=== PATIENT | female | born 1975 | race Caucasian/White ===

== ENCOUNTER 2018-08-20 14:34 | Inpatient (IN) | payer BC ==
[~2018-08-20] VITALS: Ht 152.4 cm; Wt 84.4 kg
[2018-08-20] MEDS ORDERED: KETOROLAC 30MG/ML VIAL IV STA (17:02)
[2018-08-20] MEDS ORDERED: SODIUM CHLORIDE 0.9% 1,000 ML IV ONE (17:02)
[2018-08-20] MEDS ORDERED: ONDANSETRON HCL 4MG/2ML INJ IV STA (17:02)
[2018-08-20 17:20] LABS: CLARITY URINE CLOUDY (CLEAR); COLOR URINE DARK YELLOW (YELLOW); KETONES URINE TRACE (NEGATIVE); LEUKOCYTE ESTERASE URINE TRACE (NEGATIVE); NITRITE URINE NEGATIVE (NEGATIVE); OCCULT BLOOD URINE NEGATIVE (NEGATIVE); PH URINE 5.5 (4.5-8.0); PROTEIN URINE NEGATIVE (NEGATIVE); SPECIFIC GRAVITY URINE 1.042 (1.005-1.030)
[2018-08-20] MEDS ORDERED: MORPHINE SULFATE 4 MG/ML CPJ (NOT FOR IM USE) IV ONE (19:45)
[2018-08-20 20:38] LABS: BASOPHILS % 0.6 % (0.0-2.0); EOSINOPHILS % 1.3 % (0.0-5.0); HEMATOCRIT. 35.8 % (36.0-48.0); HEMOGLOBIN. 11.7 g/dL (12.0-16.0); LYMPHOCYTES % 22.4 % (20.0-50.0); MEAN CORPUSCULAR HEMOGLOBIN 28.5 pg (28.0-32.0); MEAN CORPUSCULAR VOLUME 87.3 fL (81.0-99.0); MEAN PLATELET VOLUME 8.3 fl (7.4-10.4); NEUTROPHILS % 67.7 % (40.0-76.0); PLATELET 208 x1000/uL (130-400); RED CELL DISTRIBUTION WIDTH 15.7 % (11.6-14.6)
[2018-08-20 20:42] LABS: CHLORIDE 113 mEq/L (98-107)
[2018-08-20] MEDS ORDERED: MORPHINE SULFATE 10 MG/ML CPJ IV ONE (21:15)
[2018-08-20] MEDS ORDERED: IOHEXOL-300 100 ML BOTTLE ONE (21:41)
[2018-08-20 23:24] VITALS: BP 132/90
[2018-08-21] VITALS: BP 132/90
[2018-08-21] MEDS ORDERED: LEVO50TA8 PO (00:04)
[2018-08-21] MEDS ORDERED: ONDANSETRON HCL 4MG/2ML INJ IV PRN (01:00)
[2018-08-21 01:22] LABS: HCG SCREEN NEGATIVE
[2018-08-21] MEDS: MORPHINE SULFATE 4 MG/ML CPJ (NOT FOR IM USE) IV PRN ×5 (02:15→21:42)
[2018-08-21] MEDS: DEXT 5%/0.45% NACL 1000ML 1,000 ML IV SCH ×2 (02:16→11:39)
[2018-08-21] MEDS: LEVOFLOXACIN 500MG TABLET PO SCH ×2 (02:38→21:05)
[2018-08-21 04:00] VITALS: BP 114/72
[2018-08-21 08:09] LABS: BASOPHILS % 0.7 % (0.0-2.0); EOSINOPHILS % 2.8 % (0.0-5.0); HEMATOCRIT. 33.5 % (36.0-48.0); LYMPHOCYTES % 36.6 % (20.0-50.0); MEAN CORPUSCULAR HEMOGLOBIN 28.5 pg (28.0-32.0); MEAN CORPUSCULAR VOLUME 86.6 fL (81.0-99.0); MEAN PLATELET VOLUME 8.2 fl (7.4-10.4); MONOCYTES % 8.9 % (2.0-8.0); PLATELET 189 x1000/uL (130-400); RED BLOOD CELL COUNT 3.86 mill/uL (4.2-5.4); RED CELL DISTRIBUTION WIDTH 16.1 % (11.6-14.6)
[2018-08-21 08:12] LABS: CHLORIDE 115 mEq/L (98-107)
[2018-08-21 08:40] LABS: T4 FREE 0.91 ng/dL (0.76-1.46)
[2018-08-21] MEDS ORDERED: POTASSIUM CHLORIDE 20MEQ TABLET SR PO SCH (12:00)
[2018-08-21] MEDS: PANTOPRAZOLE SODIUM 40 MG/VIAL IV SCH (15:56)
[2018-08-21 16:44] LABS: INR 1.2; PROTHROMBIN TIME 11.8 sec (9.6-11.0)
[2018-08-21 20:00] VITALS: BP 103/71
[2018-08-22] VITALS: BP 96/64
[2018-08-22] MEDS: DEXT 5%/0.45% NACL 1000ML 1,000 ML IV SCH ×3 (00:17→17:00)
[2018-08-22] MEDS: MORPHINE SULFATE 4 MG/ML CPJ (NOT FOR IM USE) IV PRN ×7 (01:45→22:33)
[2018-08-22 04:00] VITALS: BP 93/65
[2018-08-22] MEDS: PANTOPRAZOLE SODIUM 40 MG/VIAL IV SCH ×2 (04:59→15:53)
[2018-08-22 07:19] LABS: HEMATOCRIT 32.7 % (36.0-48.0); HEMOGLOBIN 10.8 g/dL (12.0-16.0); MEAN CORPUSCULAR HEMOGLOBIN 28.8 pg (28.0-32.0); MEAN CORPUSCULAR VOLUME 87.1 fL (81.0-99.0); PLATELET 185 x1000/uL (130-400); RED BLOOD CELL COUNT 3.75 mill/uL (4.2-5.4); RED CELL DISTRIBUTION WIDTH 15.9 % (11.6-14.6)
[2018-08-22 07:41] LABS: CHLORIDE 111 mEq/L (98-107)
[2018-08-22 08:00] VITALS: BP 91/62
[2018-08-22 12:00] VITALS: BP 93/45
[2018-08-22 16:00] VITALS: BP 98/66
[2018-08-22 20:00] VITALS: BP 107/64
[2018-08-22] MEDS: LEVOFLOXACIN 500MG TABLET PO SCH (20:59)
[2018-08-23] VITALS: BP 93/60
[2018-08-23] MEDS: MORPHINE SULFATE 4 MG/ML CPJ (NOT FOR IM USE) IV PRN ×5 (02:20→20:09)
[2018-08-23] MEDS: PANTOPRAZOLE SODIUM 40 MG/VIAL IV SCH ×2 (03:15→16:09)
[2018-08-23] MEDS: DEXT 5%/0.45% NACL 1000ML 1,000 ML IV SCH ×2 (03:15→13:19)
[2018-08-23 04:00] VITALS: BP 94/62
[2018-08-23 06:39] LABS: BASOPHILS % 0.7 % (0.0-2.0); EOSINOPHILS % 3.3 % (0.0-5.0); HEMATOCRIT. 32.6 % (36.0-48.0); HEMOGLOBIN. 10.9 g/dL (12.0-16.0); LYMPHOCYTES % 41.6 % (20.0-50.0); MEAN CORPUSCULAR VOLUME 86.4 fL (81.0-99.0); MEAN PLATELET VOLUME 7.9 fl (7.4-10.4); MONOCYTES % 7.6 % (2.0-8.0); NEUTROPHILS % 46.8 % (40.0-76.0); PLATELET 192 x1000/uL (130-400); RED BLOOD CELL COUNT 3.78 mill/uL (4.2-5.4)
[2018-08-23 06:46] LABS: INR 1.2; PROTHROMBIN TIME 11.8 sec (9.6-11.0)
[2018-08-23 06:58] LABS: CHLORIDE 110 mEq/L (98-107)
[2018-08-23 08:00] VITALS: BP 85/57
[2018-08-23] MEDS ORDERED: MIDAZOLAM HCL 5 MG/5 ML VIAL ONE ×2 (11:00→11:01)
[2018-08-23] MEDS ORDERED: FENTANYL CITRATE/PF 50MCG/ML 2ML VIAL ONE (11:00)
[2018-08-23 12:42] VITALS: BP 92/60
[2018-08-23 16:00] VITALS: BP 103/69
[2018-08-23 20:00] VITALS: BP 114/74
[2018-08-23] MEDS: LEVOFLOXACIN 500MG TABLET PO SCH (21:42)
[2018-08-24] VITALS: BP 101/60
[2018-08-24] MEDS: MORPHINE SULFATE 4 MG/ML CPJ (NOT FOR IM USE) IV PRN ×4 (00:01→13:54)
[2018-08-24] MEDS: DEXT 5%/0.45% NACL 1000ML 1,000 ML IV SCH ×2 (00:12→09:00)
[2018-08-24 04:00] VITALS: BP 93/57
[2018-08-24] MEDS: PANTOPRAZOLE SODIUM 40 MG/VIAL IV SCH ×2 (04:47→15:01)
[2018-08-24 07:34] LABS: HEMATOCRIT 33.9 % (36.0-48.0); HEMOGLOBIN 11.2 g/dL (12.0-16.0); MEAN CORPUSCULAR HEMOGLOBIN 28.5 pg (28.0-32.0); MEAN CORPUSCULAR VOLUME 86.2 fL (81.0-99.0); PLATELET 198 x1000/uL (130-400); RED BLOOD CELL COUNT 3.94 mill/uL (4.2-5.4); RED CELL DISTRIBUTION WIDTH 15.4 % (11.6-14.6)
[2018-08-24 08:03] VITALS: BP 82/52
[2018-08-24 09:53] LABS: CHLORIDE 110 mEq/L (98-107)
[2018-08-24] MEDS ORDERED: SODIUM CHLORIDE 0.9% 500 ML IV ONE (10:45)
[2018-08-24 11:43] VITALS: BP 96/62
[2018-08-24 14:19] LABS: HEPATITIS B SURFACE ANTIGEN NEGATIVE
[2018-08-24 14:45] LABS: HEPATITIS A AB IGM NEGATIVE (NEGATIVE)
[2018-08-24 15:19] VITALS: BP 104/71
[2018-08-24 16:26] LABS: HEPATITIS B SURFACE ANTIGEN NEGATIVE
[2018-08-24 16:56] LABS: HEPATITIS A AB IGM NEGATIVE (NEGATIVE)
[2018-08-24 16:57] VITALS: BP 104/71
[2018-08-24] MEDS ORDERED: SUCRALFATE 1 G/10 ML UDC PO SCH (17:20)
== END 2018-08-24 17:58 | disposition home or self-care (01) | DRG 381 ==
LOC: ER 14:34 → 6EST 21:04 → EDBEDREQ 21:11 → ENRESERV 22:36
PROVIDERS: ADMIT Internal Medicine; ATTEND Internal Medicine
PROC: 0DB68ZX Excision of Stomach, Via Natural or Artificial Opening Endoscopic, Diagnostic (ICD-10-PCS; principal; 2018-08-23)
DX: K22.10 Ulcer of esophagus without bleeding (principal); E87.0 Hyperosmolality and hypernatremia; K76.6 Portal hypertension; K25.9 Gastric ulcer, unspecified as acute or chronic, without hemorrhage or perforation; K26.9 Duodenal ulcer, unspecified as acute or chronic, without hemorrhage or perforation; K29.70 Gastritis, unspecified, without bleeding; K29.80 Duodenitis without bleeding; K44.9 Diaphragmatic hernia without obstruction or gangrene; K74.60 Unspecified cirrhosis of liver; D64.9 Anemia, unspecified; E03.9 Hypothyroidism, unspecified; E66.01 Morbid (severe) obesity due to excess calories; E86.0 Dehydration; K80.20 Calculus of gallbladder without cholecystitis without obstruction; E87.6 Hypokalemia; Z87.11 Personal history of peptic ulcer disease; Z87.19 Personal history of other diseases of the digestive system; Z68.36 Body mass index [BMI] 36.0-36.9, adult
CPT/HCPCS: 36415; 74177; 76705; 78227; 80048; 80076; 81025; 84439; 84443; 84703; 85027; 86705; 86709; 86803; 87340; 88305; 88312; 88313; 96361; 96374; 96375; 96376; 99285; A9537; C9113; J1885; J2250; J2270; J2405; J3010; J7030; Q9967

== ENCOUNTER 2018-11-06 08:33 | Emergency (ER) | payer BC ==
[~2018-11-06] VITALS: Ht 167.6 cm; Wt 84.0 kg
[~2018-11-06 08:33] MED LIST: LEVO50TA8 PO
[2018-11-06] MEDS ORDERED: KETOROLAC 30MG/ML VIAL IV STA (09:13)
[2018-11-06] MEDS ORDERED: ONDANSETRON HCL 4MG/2ML INJ IV STA (09:13)
[2018-11-06] MEDS ORDERED: SODIUM CHLORIDE 0.9% 1,000 ML IV ONE (09:13)
[2018-11-06 09:15] VITALS: BP 102/85
[2018-11-06] MEDS ORDERED: FAMOTIDINE 20MG/2ML VIAL IV ONE (09:15)
[2018-11-06] MEDS ORDERED: LORAZEPAM 2MG/ML CPJ IV ONE ×2 (09:15→12:00)
[2018-11-06 11:32] LABS: CLARITY URINE CLOUDY (CLEAR); COLOR URINE ORANGE (YELLOW); KETONES URINE 1+ (NEGATIVE); LEUKOCYTE ESTERASE URINE 1+ (NEGATIVE); NITRITE URINE POSITIVE (NEGATIVE); OCCULT BLOOD URINE NEGATIVE (NEGATIVE); PH URINE 8.5 (4.5-8.0); PROTEIN URINE 1+ (NEGATIVE); SPECIFIC GRAVITY URINE 1.051 (1.005-1.030)
[2018-11-06 12:05] LABS: *BARBITURATES SCREEN URINE NEGATIVE (NEGATIVE); *BENZODIAZEPINES SCREEN URINE NEGATIVE (NEGATIVE); *COCAINE SCREEN URINE NEGATIVE (NEGATIVE); METHADONE URINE SCREEN NEGATIVE (NEGATIVE); OPIATES URINE SCREEN NEGATIVE (NEGATIVE)
[2018-11-06 12:06] LABS: CANNABINOID URINE SCREEN NEGATIVE (NEGATIVE); PHENCYCLIDINE URINE SCREEN NEGATIVE (NEGATIVE)
[2018-11-06 12:10] LABS: *AMPHETAMINES SCREEN URINE PRESUMTIVE POSITIVE (NEGATIVE)
[2018-11-06 13:27] LABS: BASOPHILS % 0.5 % (0.0-2.0); HEMATOCRIT. 36.9 % (36.0-48.0); HEMOGLOBIN. 12.4 g/dL (12.0-16.0); LYMPHOCYTES % 11.1 % (20.0-50.0); MEAN CORPUSCULAR HEMOGLOBIN 28.6 pg (28.0-32.0); MEAN CORPUSCULAR VOLUME 85.2 fL (81.0-99.0); MEAN PLATELET VOLUME 8.6 fl (7.4-10.4); MONOCYTES % 9.4 % (2.0-8.0); PLATELET 220 x1000/uL (130-400); RED BLOOD CELL COUNT 4.33 mill/uL (4.2-5.4); RED CELL DISTRIBUTION WIDTH 14.7 % (11.6-14.6)
[2018-11-06 13:51] LABS: CHLORIDE 108 mEq/L (98-107)
[2018-11-06 13:56] LABS: ETHANOL BLOOD < 10 mg/dL
[2018-11-06] MEDS ORDERED: CEPHALEXIN 250MG CAPSULE PO ONE (14:00)
[2018-11-06] MEDS ORDERED: POTASSIUM CHLORIDE 20MEQ TABLET SR PO ONE (14:15)
== END 2018-11-06 17:15 | disposition home or self-care (01) ==
LOC: ER 08:33
DX: N39.0 Urinary tract infection, site not specified (principal); E87.6 Hypokalemia; F10.20 Alcohol dependence, uncomplicated; Y90.0 Blood alcohol level of less than 20 mg/100 ml; Z90.49 Acquired absence of other specified parts of digestive tract; Z98.890 Other specified postprocedural states
CPT/HCPCS: 36415; 80053; 80305; 80320; 81003; 83690; 85025; 96361; 96374; 96375; 99283; J1885; J2060; J2405; J3490; J7030; G0480

== ENCOUNTER 2018-11-08 12:52 | Emergency (ER) | payer BC ==
[~2018-11-08] VITALS: Ht 167.6 cm; Wt 100.0 kg
[2018-11-08] MEDS ORDERED: KETOROLAC 30MG/ML VIAL IV STA (13:24)
[2018-11-08 15:16] LABS: BASOPHILS % 0.5 % (0.0-2.0); CHLORIDE 108 mEq/L (98-107); EOSINOPHILS % 1.3 % (0.0-5.0); HEMOGLOBIN. 13.4 g/dL (12.0-16.0); MEAN CORPUSCULAR HEMOGLOBIN 29.4 pg (28.0-32.0); MEAN CORPUSCULAR VOLUME 87.9 fL (81.0-99.0); NEUTROPHILS % 72.2 % (40.0-76.0); PLATELET 154 x1000/uL (130-400); RED BLOOD CELL COUNT 4.55 mill/uL (4.2-5.4); RED CELL DISTRIBUTION WIDTH 15.4 % (11.6-14.6)
[2018-11-08 15:26] LABS: CLARITY URINE CLEAR (CLEAR); COLOR URINE DARK YELLOW (YELLOW); KETONES URINE 1+ (NEGATIVE); LEUKOCYTE ESTERASE URINE TRACE (NEGATIVE); NITRITE URINE NEGATIVE (NEGATIVE); OCCULT BLOOD URINE NEGATIVE (NEGATIVE); PH URINE >=9.0 (4.5-8.0); PROTEIN URINE 1+ (NEGATIVE); SPECIFIC GRAVITY URINE 1.027 (1.005-1.030)
[2018-11-08 15:33] LABS: INR 1.2
[2018-11-08] MEDS ORDERED: ONDANSETRON HCL 4MG/2ML INJ IV STA (15:36)
[2018-11-08] MEDS ORDERED: MORPHINE SULFATE 4 MG/ML CPJ (NOT FOR IM USE) IV ONE (15:45)
[2018-11-08] MEDS ORDERED: SODIUM CHLORIDE 0.9% 1,000 ML IV ONE (16:14)
[2018-11-08 17:25] VITALS: BP 106/79
== END 2018-11-08 18:43 | disposition home or self-care (01) ==
LOC: ER 12:52
DX: N39.0 Urinary tract infection, site not specified (principal); F41.9 Anxiety disorder, unspecified; F10.20 Alcohol dependence, uncomplicated; Z90.49 Acquired absence of other specified parts of digestive tract; Z98.890 Other specified postprocedural states; Z79.899 Other long term (current) drug therapy; Y90.9 Presence of alcohol in blood, level not specified
CPT/HCPCS: 36415; 76705; 80053; 81003; 83690; 85025; 85610; 93005; 96374; 96375; 99284; J1885; J2270; J2405; J7030

== ENCOUNTER 2019-04-02 11:22 | Emergency (ER) | payer BC ==
[~2019-04-02] VITALS: Ht 157.5 cm; Wt 80.0 kg
[2019-04-02 14:38] VITALS: BP 121/83
== END 2019-04-02 17:44 | disposition left against medical advice (07) ==
LOC: ER 11:22
DX: R10.9 Unspecified abdominal pain (principal); Z53.21 Procedure and treatment not carried out due to patient leaving prior to being seen by health care provider

== ENCOUNTER 2019-11-26 06:13 | Emergency (ER) | payer SELFPAY ==
[~2019-11-26] VITALS: Ht 165.1 cm; Wt 74.0 kg
[2019-11-26] MEDS ORDERED: SODIUM CHLORIDE 0.9% 1,000 ML IV ONE (06:30)
[2019-11-26] MEDS ORDERED: LORAZEPAM 2MG/ML CPJ IV ONE ×4 (07:45→18:30)
[2019-11-26 08:28] LABS: BASOPHILS % 1.1 % (0.0-2.0); EOSINOPHILS % 0.5 % (0.0-5.0); HEMATOCRIT. 38.9 % (36.0-48.0); LYMPHOCYTES % 15.4 % (20.0-50.0); MEAN CORPUSCULAR HEMOGLOBIN 29.8 pg (28.0-32.0); MEAN CORPUSCULAR VOLUME 89.4 fL (81.0-99.0); MEAN PLATELET VOLUME 8.6 fl (7.4-10.4); MONOCYTES % 7.1 % (2.0-8.0); NEUTROPHILS % 75.9 % (40.0-76.0); PLATELET 264 x1000/uL (130-400); RED BLOOD CELL COUNT 4.35 mill/uL (4.2-5.4); RED CELL DISTRIBUTION WIDTH 16.5 % (11.6-14.6)
[2019-11-26 08:32] LABS: CHLORIDE 106 mEq/L (98-107)
[2019-11-26 08:38] LABS: ETHANOL BLOOD < 10 mg/dL
[2019-11-26 08:45] LABS: CLARITY URINE CLEAR (CLEAR); COLOR URINE YELLOW (YELLOW); KETONES URINE 1+ (NEGATIVE); LEUKOCYTE ESTERASE URINE NEGATIVE (NEGATIVE); NITRITE URINE NEGATIVE (NEGATIVE); OCCULT BLOOD URINE NEGATIVE (NEGATIVE); PROTEIN URINE NEGATIVE (NEGATIVE); SPECIFIC GRAVITY URINE 1.008 (1.005-1.030)
[2019-11-26 09:15] LABS: *BARBITURATES SCREEN URINE NEGATIVE (NEGATIVE); OPIATES URINE SCREEN NEGATIVE (NEGATIVE); PHENCYCLIDINE URINE SCREEN NEGATIVE (NEGATIVE)
[2019-11-26 09:16] LABS: *BENZODIAZEPINES SCREEN URINE NEGATIVE (NEGATIVE); *COCAINE SCREEN URINE NEGATIVE (NEGATIVE); CANNABINOID URINE SCREEN NEGATIVE (NEGATIVE); METHADONE URINE SCREEN NEGATIVE (NEGATIVE)
[2019-11-26 09:41] LABS: *AMPHETAMINES SCREEN URINE PRESUMTIVE POSITIVE (NEGATIVE)
[2019-11-26] MEDS ORDERED: LORAZEPAM 2MG/ML CPJ IM ONE (19:15)
[2019-11-26] MEDS ORDERED: HALOPERIDOL LACTATE 5MG/ML VIAL IM ONE (19:15)
[2019-11-26] MEDS ORDERED: OLANZAPINE 10 MG/VIAL IM ONE (21:00)
[2019-11-27 12:30] VITALS: BP 113/84
== END 2019-11-27 13:28 | disposition home or self-care (01) ==
LOC: ER 06:13
DX: F15.129 Other stimulant abuse with intoxication, unspecified (principal); R07.89 Other chest pain; E87.2 Acidosis; F91.8 Other conduct disorders; K76.9 Liver disease, unspecified; I10 Essential (primary) hypertension; E11.9 Type 2 diabetes mellitus without complications; F17.210 Nicotine dependence, cigarettes, uncomplicated; Z78.1 Physical restraint status
CPT/HCPCS: 36415; 70450; 80053; 80305; 80320; 81003; 82140; 83605; 84443; 84484; 85025; 93005; 96361; 96372; 96374; 96376; 99285; J1630; J2060; J3490; J7030; G0480

== ENCOUNTER 2019-12-15 20:55 | Inpatient (IN) | payer SELFPAY ==
[~2019-12-15] VITALS: Ht 160 cm; Wt 89.4 kg
[2019-12-15] MEDS ORDERED: DIPHENHYDRAMINE 50MG/ML VIAL IM ONE (21:15)
[2019-12-15] MEDS ORDERED: LORAZEPAM 2MG/ML CPJ IM ONE (21:15)
[2019-12-15] MEDS ORDERED: OLANZAPINE 10 MG/VIAL IM ONE (21:15)
[2019-12-15 23:14] LABS: BASOPHILS % 1.2 % (0.0-2.0); EOSINOPHILS % 0.1 % (0.0-5.0); HEMATOCRIT. 43.4 % (36.0-48.0); HEMOGLOBIN. 14.3 g/dL (12.0-16.0); LYMPHOCYTES % 21.5 % (20.0-50.0); MEAN CORPUSCULAR HEMOGLOBIN 29.5 pg (28.0-32.0); MEAN CORPUSCULAR VOLUME 89.7 fL (81.0-99.0); MEAN PLATELET VOLUME 7.5 fl (7.4-10.4); MONOCYTES % 7.3 % (2.0-8.0); NEUTROPHILS % 69.9 % (40.0-76.0); PLATELET 240 x1000/uL (130-400); RED BLOOD CELL COUNT 4.84 mill/uL (4.2-5.4); RED CELL DISTRIBUTION WIDTH 17.9 % (11.6-14.6)
[2019-12-15 23:16] LABS: CHLORIDE 106 mEq/L (98-107)
[2019-12-15] MEDS ORDERED: POTASSIUM CHLORIDE INJ 40 MEQ in DEXT 5% WATER 500 ML IV ONE (23:45)
[2019-12-16 00:04] LABS: ETHANOL BLOOD 396 mg/dL
[2019-12-16 00:37] LABS: HCG SCREEN NEGATIVE
[2019-12-16 04:13] VITALS: BP 102/63
[2019-12-16 04:50] VITALS: BP 102/63
[2019-12-16] MEDS ORDERED: CLONIDINE 0.1MG TABLET PO PRN (05:15)
[2019-12-16] MEDS ORDERED: MAGNESIUM/ALUMINUM HYDROXIDE/SIMETHICONE 30ML UDC PO PRN (05:15)
[2019-12-16] MEDS: LORAZEPAM 2MG/ML CPJ IV PRN ×3 (05:39→18:33)
[2019-12-16] MEDS ORDERED: KCL 10MEQ/50ML PREMIX 50 ML IV NR (06:00)
[2019-12-16] MEDS: ACETAMINOPHEN 325MG TABLET PO PRN ×2 (06:50→20:09)
[2019-12-16 08:00] VITALS: BP 94/54
[2019-12-16 09:01] LABS: *AMPHETAMINES SCREEN URINE NEGATIVE (NEGATIVE); *BARBITURATES SCREEN URINE NEGATIVE (NEGATIVE); *BENZODIAZEPINES SCREEN URINE NEGATIVE (NEGATIVE); CANNABINOID URINE SCREEN NEGATIVE (NEGATIVE); METHADONE URINE SCREEN NEGATIVE (NEGATIVE); OPIATES URINE SCREEN NEGATIVE (NEGATIVE); PHENCYCLIDINE URINE SCREEN NEGATIVE (NEGATIVE)
[2019-12-16 09:02] LABS: *COCAINE SCREEN URINE NEGATIVE (NEGATIVE)
[2019-12-16] MEDS: MULTIVITAMINS,THER W-MINERALS TABLET PO SCH (09:09)
[2019-12-16] MEDS: THIAMINE HCL 100MG TABLET PO SCH (09:09)
[2019-12-16] MEDS: ONDANSETRON HCL 4MG/2ML INJ IV PRN (11:13)
[2019-12-16] MEDS: KETOROLAC 15MG/ML VIAL IV PRN ×2 (11:14→18:01)
[2019-12-16] MEDS: LEVOTHYROXINE SODIUM 50MCG TABLET PO SCH (11:54)
[2019-12-16 12:00] VITALS: BP 108/64
[2019-12-16 12:54] LABS: CHLORIDE 105 mEq/L (98-107)
[2019-12-16 16:00] VITALS: BP 110/67
[2019-12-16] MEDS: DEXT 5%/0.45% NACL KCL 10MEQ/L 1,000 ML IV SCH (18:20)
[2019-12-16 20:00] VITALS: BP 108/75
[2019-12-17] VITALS: BP 104/62
[2019-12-17 04:00] VITALS: BP 110/71
[2019-12-17] MEDS: KETOROLAC 15MG/ML VIAL IV PRN ×2 (04:10→09:33)
[2019-12-17] MEDS: LORAZEPAM 2MG/ML CPJ IV PRN ×2 (05:34→10:17)
[2019-12-17] MEDS: LEVOTHYROXINE SODIUM 50MCG TABLET PO SCH (05:48)
[2019-12-17 06:48] LABS: BASOPHILS % 0.9 % (0.0-2.0); EOSINOPHILS % 1.9 % (0.0-5.0); HEMATOCRIT. 33.9 % (36.0-48.0); HEMOGLOBIN. 11.2 g/dL (12.0-16.0); MEAN CORPUSCULAR HEMOGLOBIN 29.7 pg (28.0-32.0); MEAN CORPUSCULAR VOLUME 90.1 fL (81.0-99.0); MEAN PLATELET VOLUME 7.7 fl (7.4-10.4); MONOCYTES % 11.6 % (2.0-8.0); NEUTROPHILS % 56.6 % (40.0-76.0); PLATELET 123 x1000/uL (130-400); RED BLOOD CELL COUNT 3.76 mill/uL (4.2-5.4)
[2019-12-17 07:29] LABS: CHLORIDE 103 mEq/L (98-107)
[2019-12-17 08:00] VITALS: BP 101/72
[2019-12-17] MEDS: THIAMINE HCL 100MG TABLET PO SCH (09:24)
[2019-12-17] MEDS: DEXT 5%/0.45% NACL KCL 10MEQ/L 1,000 ML IV SCH (09:24)
[2019-12-17] MEDS: MULTIVITAMINS,THER W-MINERALS TABLET PO SCH (09:24)
[2019-12-17] MEDS: ONDANSETRON HCL 4MG/2ML INJ IV PRN (09:32)
[2019-12-17 12:00] VITALS: BP 108/70
[2019-12-17] MEDS ORDERED: POTASSIUM CHLORIDE 20MEQ TABLET SR PO NR (12:45)
[2019-12-17 12:48] VITALS: BP 108/70
== END 2019-12-17 14:35 | disposition home or self-care (01) | DRG 425 ==
LOC: ER 20:55 → 5WST 12-16 01:39 → ENRESERV 12-16 03:04
PROVIDERS: ADMIT Hospitalist; ATTEND Hospitalist
DX: E87.6 Hypokalemia (principal); E03.9 Hypothyroidism, unspecified; F10.239 Alcohol dependence with withdrawal, unspecified; F15.10 Other stimulant abuse, uncomplicated; I10 Essential (primary) hypertension; K76.9 Liver disease, unspecified; R74.01 Elevation of levels of liver transaminase levels
CPT/HCPCS: 36415; 80048; 80053; 80305; 80320; 83735; 84484; 84703; 85025; 93005; 93970; 99285; J1200; J1885; J2060; J2405; J3480; J3490; J7060; G0480

== ENCOUNTER 2020-03-29 16:23 | Emergency (ER) | payer MEDICAID ==
[~2020-03-29] VITALS: Ht 167.6 cm; Wt 65.0 kg
[2020-03-29] MEDS ORDERED: SODIUM CHLORIDE 0.9% 1,000 ML IV ONE (17:00)
[2020-03-29 17:30] LABS: CHLORIDE 109 mEq/L (98-107)
[2020-03-29] MEDS ORDERED: ONDANSETRON HCL 4MG/2ML INJ IV STA (17:32)
[2020-03-29] MEDS ORDERED: MORPHINE SULFATE 4 MG/ML CPJ (NOT FOR IM USE) IV STA (17:32)
[2020-03-29 17:41] LABS: HCG SCREEN NEGATIVE
[2020-03-29 17:44] LABS: INR 1.1; PROTHROMBIN TIME 11.5 sec (9.6-11.0)
[2020-03-29 18:16] LABS: ETHANOL BLOOD 368 mg/dL
[2020-03-29 18:21] LABS: BASOPHILS % 1.4 % (0.0-2.0); EOSINOPHILS % 0.1 % (0.0-5.0); HEMATOCRIT. 36.5 % (36.0-48.0); HEMOGLOBIN. 12.1 g/dL (12.0-16.0); LYMPHOCYTES % 27.7 % (20.0-50.0); MEAN CORPUSCULAR HEMOGLOBIN 27.8 pg (28.0-32.0); MEAN CORPUSCULAR VOLUME 84.1 fL (81.0-99.0); MEAN PLATELET VOLUME 7.2 fl (7.4-10.4); MONOCYTES % 7.8 % (2.0-8.0); PLATELET 134 x1000/uL (130-400); RED BLOOD CELL COUNT 4.34 mill/uL (4.2-5.4)
[2020-03-29 19:17] LABS: CLARITY URINE CLEAR (CLEAR); COLOR URINE YELLOW (YELLOW); KETONES URINE NEGATIVE (NEGATIVE); LEUKOCYTE ESTERASE URINE NEGATIVE (NEGATIVE); NITRITE URINE NEGATIVE (NEGATIVE); OCCULT BLOOD URINE NEGATIVE (NEGATIVE); PROTEIN URINE 1+ (NEGATIVE); SPECIFIC GRAVITY URINE 1.014 (1.005-1.030)
[2020-03-29 19:27] LABS: *AMPHETAMINES SCREEN URINE NEGATIVE (NEGATIVE); *BARBITURATES SCREEN URINE NEGATIVE (NEGATIVE); *BENZODIAZEPINES SCREEN URINE NEGATIVE (NEGATIVE); *COCAINE SCREEN URINE NEGATIVE (NEGATIVE); METHADONE URINE SCREEN NEGATIVE (NEGATIVE)
[2020-03-29 19:28] LABS: CANNABINOID URINE SCREEN NEGATIVE (NEGATIVE); OPIATES URINE SCREEN NEGATIVE (NEGATIVE); PHENCYCLIDINE URINE SCREEN NEGATIVE (NEGATIVE)
[2020-03-29] MEDS ORDERED: VISCOUS LIDOCAINE 2% 15 ML UDC PO STA (20:02)
[2020-03-29] MEDS ORDERED: MAGNESIUM/ALUMINUM HYDROXIDE/SIMETHICONE 30ML UDC PO STA (20:02)
[2020-03-29] MEDS ORDERED: LORAZEPAM 2MG/ML CPJ IV ONE (20:15)
[2020-03-29] MEDS ORDERED: CHLORDIAZEPOXIDE 25MG CAPSULE PO ONE (20:15)
[2020-03-29] MEDS ORDERED: ONDANSETRON HCL 4MG/2ML INJ IV ONE (20:15)
[2020-03-29] MEDS ORDERED: ONDA4TAB5 MT (20:27)
[2020-03-29 20:30] VITALS: BP 123/85
== END 2020-03-29 20:36 | disposition home or self-care (01) ==
LOC: ER 16:23
DX: T51.0X1A Toxic effect of ethanol, accidental (unintentional), initial encounter (principal); R10.33 Periumbilical pain; K70.9 Alcoholic liver disease, unspecified; I10 Essential (primary) hypertension; Y90.8 Blood alcohol level of 240 mg/100 ml or more; Y92.488 Other paved roadways as the place of occurrence of the external cause
CPT/HCPCS: 36415; 74176; 80053; 80305; 80320; 81003; 83690; 84703; 85025; 85610; 93005; 96361; 96374; 96375; 96376; 99285; J2060; J2270; J2405; J7030; Z7610; G0480

== ENCOUNTER 2020-05-22 20:11 | Inpatient (IN) | payer MEDICAID ==
[~2020-05-22] VITALS: Ht 165.1 cm; Wt 82.2 kg
[~2020-05-22 20:11] MED LIST changes: +ONDA4TAB5 MT
[2020-05-22] MEDS ORDERED: SODIUM CHLORIDE 0.9% 1,000 ML IV ONE ×2 (22:00→22:15)
[2020-05-22] MEDS ORDERED: ONDANSETRON HCL 4MG/2ML INJ IV STA (22:09)
[2020-05-22] MEDS ORDERED: MORPHINE SULFATE 4 MG/ML CPJ (NOT FOR IM USE) IV STA (22:09)
[2020-05-22 22:53] LABS: BASOPHILS % 0.8 % (0.0-2.0); EOSINOPHILS % 0.2 % (0.0-5.0); HEMATOCRIT. 35.2 % (36.0-48.0); HEMOGLOBIN. 11.8 g/dL (12.0-16.0); LYMPHOCYTES % 32.3 % (20.0-50.0); MEAN CORPUSCULAR HEMOGLOBIN 29.3 pg (28.0-32.0); MEAN CORPUSCULAR VOLUME 87.4 fL (81.0-99.0); MONOCYTES % 8.2 % (2.0-8.0); NEUTROPHILS % 58.5 % (40.0-76.0); PLATELET 158 x1000/uL (130-400); RED BLOOD CELL COUNT 4.02 mill/uL (4.2-5.4); RED CELL DISTRIBUTION WIDTH 19.7 % (11.6-14.6)
[2020-05-22 22:57] LABS: CHLORIDE 104 mEq/L (98-107)
[2020-05-22 23:08] LABS: HCG SCREEN NEGATIVE
[2020-05-22 23:18] LABS: ETHANOL BLOOD 371 mg/dL
[2020-05-22 23:36] LABS: CLARITY URINE CLEAR (CLEAR); COLOR URINE YELLOW (YELLOW); KETONES URINE NEGATIVE (NEGATIVE); LEUKOCYTE ESTERASE URINE NEGATIVE (NEGATIVE); NITRITE URINE NEGATIVE (NEGATIVE); OCCULT BLOOD URINE NEGATIVE (NEGATIVE); PROTEIN URINE NEGATIVE (NEGATIVE); SPECIFIC GRAVITY URINE 1.008 (1.005-1.030); UROBILINOGEN URINE 0.2 E.U./dL (0.2-1.0)
[2020-05-22 23:49] LABS: *AMPHETAMINES SCREEN URINE NEGATIVE (NEGATIVE); *BARBITURATES SCREEN URINE NEGATIVE (NEGATIVE); *BENZODIAZEPINES SCREEN URINE NEGATIVE (NEGATIVE); *COCAINE SCREEN URINE NEGATIVE (NEGATIVE); CANNABINOID URINE SCREEN NEGATIVE (NEGATIVE); METHADONE URINE SCREEN NEGATIVE (NEGATIVE); PHENCYCLIDINE URINE SCREEN NEGATIVE (NEGATIVE)
[2020-05-23 00:05] LABS: OPIATES URINE SCREEN PRESUMTIVE POSITIVE (NEGATIVE)
[2020-05-23] MEDS ORDERED: POTASSIUM CHLORIDE 20MEQ TABLET SR PO ONE (01:30)
[2020-05-23] MEDS ORDERED: KETOROLAC 15MG/ML VIAL IV ONE (01:30)
[2020-05-23] MEDS ORDERED: AZITHROMYCIN 500 MG in DEXT 5% WATER 250 ML IV ONE (02:00)
[2020-05-23] MEDS ORDERED: CEFTRIAXONE 1 G PREMIX 50 ML IV ONE (02:00)
[2020-05-23] MEDS: ONDANSETRON HCL 4MG/2ML INJ IV PRN ×2 (03:40→11:57)
[2020-05-23] MEDS ORDERED: SODIUM CHLORIDE 0.9% 1000ML BAG (SEPSIS BOLUS) IV ONE (03:45)
[2020-05-23] MEDS ORDERED: MORPHINE SULFATE 2 MG/ML CPJ (NOT FOR IM USE) IV PRN (03:45)
[2020-05-23] MEDS ORDERED: METOCLOPRAMIDE HCL 10MG/2ML VIAL IV PRN (06:15)
[2020-05-23 09:30] VITALS: BP_SYST 118; BP_SYST 139; BP_DIAS 90
[2020-05-23] MEDS ORDERED: MULTIVITAMINS,THER W-MINERALS TABLET PO NR (11:00)
[2020-05-23] MEDS: FOLIC ACID 1 MG, THIAMINE HCL 100 MG in DEXTROSE 5% WATER 1,000 ML IV NR ×3 (11:10→21:23)
[2020-05-23] MEDS: TRAMADOL 50MG TABLET PO PRN ×2 (11:17→19:35)
[2020-05-23 12:00] VITALS: BP 133/87
[2020-05-23] MEDS: ACETAMINOPHEN 325MG TABLET PO PRN ×2 (12:27→18:21)
[2020-05-23] MEDS ORDERED: CEFTRIAXONE 1 G PREMIX 50 ML IV SCH (12:30)
[2020-05-23] MEDS: CHLORDIAZEPOXIDE 25MG CAPSULE PO SCH ×2 (13:15→21:19)
[2020-05-23] MEDS: LORAZEPAM 2MG/ML CPJ IV PRN ×2 (13:37→21:29)
[2020-05-23 16:00] VITALS: BP 147/100
[2020-05-23 20:00] VITALS: BP 134/96
[2020-05-24] VITALS: BP 144/100
[2020-05-24 04:00] VITALS: BP 121/84
[2020-05-24] MEDS: CEFTRIAXONE 1,000 MG in DEXTROSE 5% WATER 50 ML IV SCH (05:03)
[2020-05-24] MEDS: TRAMADOL 50MG TABLET PO PRN ×3 (05:15→21:01)
[2020-05-24] MEDS: OMEPRAZOLE 20MG CAPSULE EXTENDED RELEASE PO SCH (06:18)
[2020-05-24] MEDS: LEVOTHYROXINE SODIUM 50MCG TABLET PO SCH (06:19)
[2020-05-24] MEDS: CHLORDIAZEPOXIDE 25MG CAPSULE PO SCH ×3 (06:19→21:01)
[2020-05-24 07:01] LABS: BASOPHILS % 0.6 % (0.0-2.0); EOSINOPHILS % 2.2 % (0.0-5.0); HEMATOCRIT. 32.9 % (36.0-48.0); HEMOGLOBIN. 10.9 g/dL (12.0-16.0); MEAN CORPUSCULAR HEMOGLOBIN 29.5 pg (28.0-32.0); MEAN CORPUSCULAR VOLUME 88.7 fL (81.0-99.0); MEAN PLATELET VOLUME 8.2 fl (7.4-10.4); MONOCYTES % 9.1 % (2.0-8.0); NEUTROPHILS % 67.1 % (40.0-76.0); PLATELET 102 x1000/uL (130-400); RED BLOOD CELL COUNT 3.71 mill/uL (4.2-5.4); RED CELL DISTRIBUTION WIDTH 19.9 % (11.6-14.6)
[2020-05-24 07:25] LABS: CHLORIDE 101 mEq/L (98-107)
[2020-05-24 08:00] VITALS: BP 117/76
[2020-05-24] MEDS ORDERED: POTASSIUM CHLORIDE 20MEQ TABLET SR PO NR (09:15)
[2020-05-24 10:20] LABS: PHOSPHORUS 3.4 mg/dL (2.5-4.9)
[2020-05-24] MEDS ORDERED: IOHEXOL-300 100 ML BOTTLE ONE (10:49)
[2020-05-24] MEDS ORDERED: POTASSIUM CHLORIDE INJ 40 MEQ in DEXT 5% WATER 250 ML IV NR (11:00)
[2020-05-24 12:00] VITALS: BP 132/88
[2020-05-24] MEDS ORDERED: MAGNESIUM/ALUMINUM HYDROXIDE/SIMETHICONE 30ML UDC PO PRN (12:15)
[2020-05-24] MEDS: LORAZEPAM 2MG/ML CPJ IV PRN ×2 (12:16→22:40)
[2020-05-24] MEDS: HYDROCODONE/ACETAMINOPHEN 5/325MG TABLET PO PRN ×2 (15:35→21:01)
[2020-05-24 16:00] VITALS: BP 125/90
[2020-05-24 20:00] VITALS: BP 116/85
[2020-05-25] VITALS: BP 117/80
[2020-05-25 04:00] VITALS: BP 109/77
[2020-05-25] MEDS: LORAZEPAM 2MG/ML CPJ IV PRN (06:07)
[2020-05-25] MEDS: CHLORDIAZEPOXIDE 25MG CAPSULE PO SCH (06:07)
[2020-05-25] MEDS: CEFTRIAXONE 1,000 MG in DEXTROSE 5% WATER 50 ML IV SCH (06:09)
[2020-05-25] MEDS: OMEPRAZOLE 20MG CAPSULE EXTENDED RELEASE PO SCH (06:09)
[2020-05-25] MEDS: LEVOTHYROXINE SODIUM 50MCG TABLET PO SCH (06:10)
[2020-05-25 06:51] LABS: CHLORIDE 103 mEq/L (98-107)
[2020-05-25 06:57] LABS: BASOPHILS % 0.9 % (0.0-2.0); EOSINOPHILS % 5.3 % (0.0-5.0); HEMATOCRIT. 34.4 % (36.0-48.0); HEMOGLOBIN. 11.2 g/dL (12.0-16.0); LYMPHOCYTES % 22.7 % (20.0-50.0); MEAN CORPUSCULAR HEMOGLOBIN 28.8 pg (28.0-32.0); MEAN CORPUSCULAR VOLUME 88.4 fL (81.0-99.0); MEAN PLATELET VOLUME 8.1 fl (7.4-10.4); MONOCYTES % 9.2 % (2.0-8.0); NEUTROPHILS % 61.9 % (40.0-76.0); PLATELET 94 x1000/uL (130-400); RED BLOOD CELL COUNT 3.89 mill/uL (4.2-5.4); RED CELL DISTRIBUTION WIDTH 20.1 % (11.6-14.6)
[2020-05-25 08:00] VITALS: BP 116/85
[2020-06-28] MEDS ORDERED: PROT20 MT (12:33)
[2020-06-28] MEDS ORDERED: FOLI-43 PO (12:33)
[2020-06-28] MEDS ORDERED: THIA100T72 PO (12:33)
[2020-06-28] MEDS ORDERED: LEVO50TA8 PO (12:33)
[2020-06-28] MEDS ORDERED: METO-293 MT (12:33)
== END 2020-05-25 09:35 | disposition left against medical advice (07) | DRG 720 ==
LOC: ER 20:11 → 7WST 05-23 02:00 → ENRESERV 05-23 07:32 → 8WST 05-24 00:12
PROVIDERS: ADMIT Internal Medicine; ATTEND Internal Medicine
DX: A41.9 Sepsis, unspecified organism (principal); E87.2 Acidosis; I85.10 Secondary esophageal varices without bleeding; K74.60 Unspecified cirrhosis of liver; E87.6 Hypokalemia; F10.229 Alcohol dependence with intoxication, unspecified; I86.4 Gastric varices; K44.9 Diaphragmatic hernia without obstruction or gangrene; Z53.29 Procedure and treatment not carried out because of patient's decision for other reasons; K80.20 Calculus of gallbladder without cholecystitis without obstruction; Y90.8 Blood alcohol level of 240 mg/100 ml or more; Z20.822 Contact with and (suspected) exposure to COVID-19; Z78.1 Physical restraint status; Z71.41 Alcohol abuse counseling and surveillance of alcoholic; D72.819 Decreased white blood cell count, unspecified; A09 Infectious gastroenteritis and colitis, unspecified
CPT/HCPCS: 36415; 71045; 74176; 74177; 76705; 80048; 80053; 80305; 80307; 80320; 80329; 81003; 83605; 83735; 84100; 84703; 85025; 93005; 99285; J0456; J0696; J1885; J2060; J2270; J2405; J2765; J3411; J3480; J3490; J7030; J7040; J7060; J7070; Q9967; U0003; G0480

== ENCOUNTER 2020-06-29 20:22 | Emergency (ER) | payer SELFPAY ==
[~2020-06-29] VITALS: Ht 160 cm; Wt 69.0 kg
[~2020-06-29 20:22] MED LIST changes: +FOLI-43 PO; +METO-293 MT; +PROT20 MT; +THIA100T72 PO
[2020-06-29] MEDS ORDERED: SODIUM CHLORIDE 0.9% 1,000 ML IV ONE (21:45)
[2020-06-29] MEDS ORDERED: ONDANSETRON HCL 4MG/2ML INJ IV STA (21:45)
[2020-06-29 22:33] LABS: BASOPHILS % 1.5 % (0.0-2.0); HEMOGLOBIN. 11.5 g/dL (12.0-16.0); LYMPHOCYTES % 27.6 % (20.0-50.0); MEAN CORPUSCULAR HEMOGLOBIN 30.8 pg (28.0-32.0); MEAN CORPUSCULAR VOLUME 90.9 fL (81.0-99.0); MEAN PLATELET VOLUME 7.8 fl (7.4-10.4); MONOCYTES % 8.2 % (2.0-8.0); NEUTROPHILS % 61.7 % (40.0-76.0); PLATELET 148 x1000/uL (130-400); RED BLOOD CELL COUNT 3.74 mill/uL (4.2-5.4); RED CELL DISTRIBUTION WIDTH 22.1 % (11.6-14.6)
[2020-06-29 22:42] LABS: CHLORIDE 117 mEq/L (98-107)
[2020-06-29 23:04] LABS: PLATELET ESTIMATE NORMAL
[2020-06-29 23:05] LABS: ETHANOL BLOOD 401 mg/dL
[2020-06-30] MEDS ORDERED: MAGNESIUM/ALUMINUM HYDROXIDE/SIMETHICONE 30ML UDC PO STA (00:23)
[2020-06-30] MEDS ORDERED: OMEP40CA12 MT (03:03)
[2020-06-30 04:12] VITALS: BP 120/76
== END 2020-06-30 04:15 | disposition home or self-care (01) ==
LOC: ER 20:22
DX: F10.129 Alcohol abuse with intoxication, unspecified (principal); Z79.899 Other long term (current) drug therapy; Y90.8 Blood alcohol level of 240 mg/100 ml or more
CPT/HCPCS: 36415; 74176; 80048; 80320; 83690; 85025; 93005; 96361; 96374; 99285; J2405; J7030; G0480

== ENCOUNTER 2022-06-30 12:20 | Emergency (ER) | payer MEDICAID ==
[~2022-06-30] VITALS: Ht 162.6 cm; Wt 59.0 kg
[~2022-06-30 12:20] MED LIST changes: +HYDR-4001 MT; +OMEP40CA20 MT
[2022-06-30 14:01] LABS: BASOPHILS % 1.9 % (0.0-2.0); EOSINOPHILS % 0.1 % (0.0-5.0); HEMATOCRIT. 35.6 % (36.0-48.0); HEMOGLOBIN. 11.6 g/dL (12.0-16.0); LYMPHOCYTES % 28.7 % (20.0-50.0); MEAN CORPUSCULAR HEMOGLOBIN 25.2 pg (28.0-32.0); MEAN CORPUSCULAR VOLUME 77.3 fL (81.0-99.0); MONOCYTES % 10.1 % (2.0-8.0); NEUTROPHILS % 59.2 % (40.0-76.0); PLATELET 232 x1000/uL (130-400); RED BLOOD CELL COUNT 4.61 mill/uL (4.2-5.4)
[2022-06-30] MEDS ORDERED: FAMOTIDINE 20MG/2ML VIAL IV NR (14:15)
[2022-06-30] MEDS ORDERED: ONDANSETRON HCL 4MG/2ML INJ IV NR (14:15)
[2022-06-30] MEDS ORDERED: SODIUM CHLORIDE 0.9% 1,000 ML IV SCH (14:15)
[2022-06-30 14:16] LABS: CHLORIDE 97 mEq/L (98-107)
[2022-06-30 14:17] LABS: CLARITY URINE CLOUDY (CLEAR); COLOR URINE DARK YELLOW (YELLOW); KETONES URINE 2+ (NEGATIVE); LEUKOCYTE ESTERASE URINE NEGATIVE (NEGATIVE); NITRITE URINE NEGATIVE (NEGATIVE); OCCULT BLOOD URINE NEGATIVE (NEGATIVE); PH URINE 6.5 (4.5-8.0); PROTEIN URINE 1+ (NEGATIVE); SPECIFIC GRAVITY URINE 1.021 (1.005-1.030)
[2022-06-30 14:29] LABS: PLATELET ESTIMATE NORMAL
[2022-06-30 14:35] LABS: *AMPHETAMINES SCREEN URINE NEGATIVE (NEGATIVE); *BARBITURATES SCREEN URINE NEGATIVE (NEGATIVE); *BENZODIAZEPINES SCREEN URINE NEGATIVE (NEGATIVE); *COCAINE SCREEN URINE NEGATIVE (NEGATIVE); CANNABINOID URINE SCREEN NEGATIVE (NEGATIVE); METHADONE URINE SCREEN NEGATIVE (NEGATIVE); OPIATES URINE SCREEN NEGATIVE (NEGATIVE); PHENCYCLIDINE URINE SCREEN NEGATIVE (NEGATIVE)
[2022-06-30 14:37] LABS: ETHANOL BLOOD 303 mg/dL
[2022-06-30] MEDS ORDERED: KETOROLAC 15MG/ML VIAL IV NR (14:45)
[2022-06-30 14:49] LABS: HCG SCREEN NEGATIVE
[2022-06-30 15:30] VITALS: BP 122/83
[2022-06-30] MEDS ORDERED: POTASSIUM CHLORIDE 20MEQ/PACKET PO NR (17:15)
== END 2022-06-30 18:56 | disposition home or self-care (01) ==
LOC: ER 12:32
DX: F10.229 Alcohol dependence with intoxication, unspecified (principal); Y90.8 Blood alcohol level of 240 mg/100 ml or more; Z79.899 Other long term (current) drug therapy; R10.11 Right upper quadrant pain
CPT/HCPCS: 36415; 70450; 80053; 80305; 80307; 80320; 80329; 81003; 82140; 83690; 84703; 85025; 96361; 96374; 96375; 99285; J1885; J2405; J3490; Z7610; G0480

== ENCOUNTER 2022-10-04 13:23 | Emergency (ER) | payer MEDICAID ==
[~2022-10-04] VITALS: Ht 170.2 cm; Wt 82.0 kg
[2022-10-04 13:25] VITALS: O2SAT 99
[2022-10-04] MEDS ORDERED: SODIUM CHLORIDE 0.9% 1,000 ML IV ONE (13:45)
[2022-10-04] MEDS ORDERED: FAMOTIDINE 20MG/2ML VIAL IV ONE (13:45)
[2022-10-04] MEDS ORDERED: ONDANSETRON HCL 4MG/2ML INJ IV ONE (13:45)
[2022-10-04 14:13] LABS: CHLORIDE 97 mEq/L (98-107); INDEX HEMOLYSI 5 (1-3); INDEX ICTERIC 1 (1-4); INDEX LIPEMIC 1 (1-3); SODIUM 132 mEq/L (136-145)
[2022-10-04 14:15] LABS: POTASSIUM 5.4 mEq/L (3.5-5.1)
[2022-10-04 14:18] LABS: HEMATOCRIT. 36.3 % (36.0-48.0); HEMOGLOBIN. 11.9 g/dL (12.0-16.0); MEAN CORPUSCULAR HEMOGLOBIN 26.1 pg (28.0-32.0); MEAN CORPUSCULAR HGB CONC 32.7 g/dL (31.0-37.0); MEAN CORPUSCULAR VOLUME 79.9 fL (81.0-99.0); MEAN PLATELET VOLUME 8.3 fl (7.4-10.4); PLATELET 243 x1000/uL (130-400); RED BLOOD CELL COUNT 4.54 mill/uL (4.2-5.4); RED CELL DISTRIBUTION WIDTH 19.9 % (11.6-14.6); WHITE BLOOD COUNT 5.2 x1000/uL (4.5-11.0)
[2022-10-04 14:24] LABS: DIFFERENTIAL COMMENT 1; PROTHROMBIN TIME 11.1 sec (9.6-11.0)
[2022-10-04 14:25] LABS: ALANINE AMINOTRANSFERASE 60 IU/L (13-61); ALBUMIN 4.3 g/dL (3.4-5.0); ASPARTATE AMINOTRANSFERASE 117 IU/L (15-37); BILIRUBIN TOTAL 1.2 mg/dL (0.1-1.0); CALCIUM 10.7 mg/dL (8.5-10.1); CARBON DIOXIDE 21 mEq/L (21-32); CREATININE 0.6 mg/dL (0.6-1.3); ETHANOL BLOOD 34 mg/dL (-10); GLUCOSE 110 mg/dL (70-105); PROTEIN TOTAL 9.4 g/dL (6.0-8.3); UREA NITROGEN BLOOD 9 mg/dL (7-21)
[2022-10-04 14:28] LABS: TROPONIN I HIGH SENSITIVITY < 4 ng/L (<54)
[2022-10-04 14:37] LABS: HCG SCREEN NEGATIVE
[2022-10-04 14:37] LABS: CLARITY URINE CLOUDY (CLEAR); COLOR URINE DARK YELLOW (YELLOW); GLUCOSE URINE NEGATIVE (NEGATIVE); KETONES URINE TRACE (NEGATIVE); LEUKOCYTE ESTERASE URINE TRACE (NEGATIVE); NITRITE URINE NEGATIVE (NEGATIVE); OCCULT BLOOD URINE NEGATIVE (NEGATIVE); PH URINE 6.5 (4.5-8.0); PROTEIN URINE 2+ (NEGATIVE)
[2022-10-04 14:41] LABS: BACTERIA URINE 1+; SQUAMOUS EPITHELIAL CELL URINE 1+ /lpf (RARE/1+); YEAST URINE NONE SEEN
[2022-10-04 14:59] LABS: RBC URINE 0-2 /hpf (0-2)
[2022-10-04] MEDS ORDERED: LORAZEPAM 2MG/ML CPJ IV NR (15:00)
[2022-10-04 15:05] LABS: CHLORIDE 100 mEq/L (98-107); INDEX HEMOLYSI 1 (1-3); INDEX ICTERIC 1 (1-4); INDEX LIPEMIC 1 (1-3); POTASSIUM 3.4 mEq/L (3.5-5.1); SODIUM 135 mEq/L (136-145)
[2022-10-04 15:14] LABS: CALCIUM 10.1 mg/dL (8.5-10.1); CARBON DIOXIDE 22 mEq/L (21-32); CREATININE 0.7 mg/dL (0.6-1.3); GLUCOSE 100 mg/dL (70-105); UREA NITROGEN BLOOD 9 mg/dL (7-21)
[2022-10-04 16:17] LABS: ANISOCYTOSIS 2+; MICROCYTOSIS 1+; PLATELET ESTIMATE NORMAL
[2022-10-04 16:30] VITALS: BP 140/82; PULSE 85; RESP 18; TEMP 98.4
[2022-10-04] MEDS ORDERED: KETOROLAC 30MG/ML VIAL IV ONE (18:00)
== END 2022-10-04 18:17 | disposition home or self-care (01) ==
LOC: ER 13:23
DX: R10.84 Generalized abdominal pain (principal); Z86.39 Personal history of other endocrine, nutritional and metabolic disease
CPT/HCPCS: 80053; 80048; 81003; 81025; 80320; 84703; 83690; 85025; 85610; 84484; 36415; 74176; 93005; 96361; 96374; 96375; 99285; J3490; J1885; J2060; J2405; J7030; Z7610 ×3; G0480

== ENCOUNTER 2022-10-30 16:58 | Inpatient (IN) | payer MEDICAID ==
[~2022-10-30] VITALS: Ht 160 cm; Wt 84.9 kg
[2022-10-30] MEDS ORDERED: ACETAMINOPHEN 325MG TABLET PO ONE (17:45)
[2022-10-30] MEDS ORDERED: MORPHINE SULFATE 2 MG/ML CPJ (NOT FOR IM USE) IV ONE ×2 (18:00→22:00)
[2022-10-30] MEDS ORDERED: TETANUS, DIPHTHERIA, PERTUSSIS VAC/PF 0.5ML (>10YR OLD) IM ONE (18:15)
[2022-10-30 18:24] LABS: BASOPHILS % 0.9 % (0.0-2.0); DIFFERENTIAL COMMENT 0; EOSINOPHILS % 0.2 % (0.0-5.0); HEMOGLOBIN. 10.5 g/dL (12.0-16.0); LYMPHOCYTES % 8.2 % (20.0-50.0); MEAN CORPUSCULAR HEMOGLOBIN 25.2 pg (28.0-32.0); MEAN CORPUSCULAR HGB CONC 31.9 g/dL (31.0-37.0); MEAN PLATELET VOLUME 8.1 fl (7.4-10.4); MONOCYTES % 9.3 % (2.0-8.0); NEUTROPHILS % 81.4 % (40.0-76.0); PLATELET 217 x1000/uL (130-400); RED BLOOD CELL COUNT 4.17 mill/uL (4.2-5.4); RED CELL DISTRIBUTION WIDTH 19.9 % (11.6-14.6); WHITE BLOOD COUNT 6.5 x1000/uL (4.5-11.0)
[2022-10-30 18:29] LABS: HCG SCREEN NEGATIVE
[2022-10-30 18:30] LABS: CHLORIDE 98 mEq/L (98-107); INDEX HEMOLYSI 2 (1-3); INDEX ICTERIC 1 (1-4); INDEX LIPEMIC 1 (1-3); POTASSIUM 3.5 mEq/L (3.5-5.1); SODIUM 133 mEq/L (136-145)
[2022-10-30 18:42] LABS: ALANINE AMINOTRANSFERASE 32 IU/L (13-61); ASPARTATE AMINOTRANSFERASE 46 IU/L (15-37); BILIRUBIN TOTAL 1.9 mg/dL (0.1-1.0); CALCIUM 9.5 mg/dL (8.5-10.1); CARBON DIOXIDE 23 mEq/L (21-32); CREATININE 0.8 mg/dL (0.6-1.3); GLUCOSE 162 mg/dL (70-105); PROTEIN TOTAL 8.2 g/dL (6.0-8.3); UREA NITROGEN BLOOD 13 mg/dL (7-21)
[2022-10-30 18:45] LABS: TROPONIN I HIGH SENSITIVITY < 4 ng/L (<54)
[2022-10-30] MEDS ORDERED: IOHEXOL-300 100 ML BOTTLE ONE (18:57)
[2022-10-30 22:25] VITALS: BP 145/94; PULSE 69; RESP 19; TEMP 98.8
[2022-10-30] MEDS ORDERED: DOCUSATE SODIUM 100MG CAPSULE PO PRN (23:30)
[2022-10-30] MEDS ORDERED: IPRATROPIUM/ALBUTEROL 0.5-3(2.5)MG/3ML NEB HHN PRN (23:30)
[2022-10-30] MEDS: SODIUM CHLORIDE 0.9% 1,000 ML IV SCH (23:30)
[2022-10-30] MEDS ORDERED: LORAZEPAM 1MG TABLET PO PRN (23:30)
[2022-10-30] MEDS ORDERED: CHLORDIAZEPOXIDE 25MG CAPSULE PO PRN ×3 (23:30)
[2022-10-30] MEDS ORDERED: CLONIDINE 0.1MG TABLET PO PRN (23:30)
[2022-10-30] MEDS ORDERED: ONDANSETRON HCL 4MG/2ML INJ IV PRN (23:30)
[2022-10-30] MEDS ORDERED: PHENOBARBITAL 30 MG TABLET PO PRN ×2 (23:30)
[2022-10-30] MEDS ORDERED: PHENOBARBITAL 60MG TABLET PO PRN (23:30)
[2022-10-30] MEDS ORDERED: ACETAMINOPHEN 325MG TABLET PO PRN ×2 (23:30)
[2022-10-30] MEDS ORDERED: GUAIFENESIN 200MG/10ML SUGAR FREE UDC PO PRN (23:30)
[2022-10-30] MEDS ORDERED: MAGNESIUM/ALUMINUM HYDROXIDE/SIMETHICONE 30ML UDC PO PRN (23:30)
[2022-10-30] MEDS ORDERED: NALOXONE HCL 0.4MG/ML VIAL IV PRN (23:45)
[2022-10-30 23:46] LABS: HEPATITIS B SURFACE ANTIGEN NEGATIVE
[2022-10-31 00:14] LABS: HEPATITIS C VIR.AB 0.12 INDEXVAL (0.00-0.80)
[2022-10-31] MEDS ORDERED: LORAZEPAM 2MG/ML CPJ IV PRN (00:15)
[2022-10-31] MEDS: CARVEDILOL 3.125 MG TABLET PO SCH ×3 (00:25→17:00)
[2022-10-31] MEDS: THIAMINE HCL 100MG TABLET PO SCH ×2 (00:25→08:38)
[2022-10-31 01:57] LABS: INR 1.1; PARTIAL THROMBOPLASTIN TIME 21.2 sec (23.4-31.0); PROTHROMBIN TIME 11.4 sec (9.6-11.0)
[2022-10-31] MEDS: HYDROCODONE/ACETAMINOPHEN 5/325MG TABLET PO PRN ×5 (02:05→21:58)
[2022-10-31 04:00] VITALS: BP 112/70; PULSE 68; RESP 19; TEMP 97.7
[2022-10-31 07:24] LABS: BASOPHILS % 1.1 % (0.0-2.0); DIFFERENTIAL COMMENT 0; HEMATOCRIT. 32.4 % (36.0-48.0); HEMOGLOBIN. 10.3 g/dL (12.0-16.0); INDEX HEMOLYSI 1 (1-3); LYMPHOCYTES % 21.9 % (20.0-50.0); MEAN CORPUSCULAR HEMOGLOBIN 25.4 pg (28.0-32.0); MEAN CORPUSCULAR HGB CONC 31.8 g/dL (31.0-37.0); MEAN CORPUSCULAR VOLUME 79.7 fL (81.0-99.0); MEAN PLATELET VOLUME 8.1 fl (7.4-10.4); MONOCYTES % 10.6 % (2.0-8.0); NEUTROPHILS % 62.4 % (40.0-76.0); PLATELET 170 x1000/uL (130-400); RED BLOOD CELL COUNT 4.07 mill/uL (4.2-5.4); RED CELL DISTRIBUTION WIDTH 20.2 % (11.6-14.6); WHITE BLOOD COUNT 3.7 x1000/uL (4.5-11.0)
[2022-10-31 07:27] LABS: AMMONIA 25 uMol/L (<32)
[2022-10-31 07:58] LABS: CHLORIDE 102 mEq/L (98-107); INDEX HEMOLYSI 1 (1-3); INDEX ICTERIC 1 (1-4); INDEX LIPEMIC 1 (1-3); POTASSIUM 3.5 mEq/L (3.5-5.1); SODIUM 136 mEq/L (136-145)
[2022-10-31 08:00] VITALS: BP 110/85; PULSE 63; RESP 18; TEMP 97.7
[2022-10-31 08:11] LABS: ALANINE AMINOTRANSFERASE 25 IU/L (13-61); ALBUMIN 3.6 g/dL (3.4-5.0); ASPARTATE AMINOTRANSFERASE 36 IU/L (15-37); BILIRUBIN TOTAL 1.8 mg/dL (0.1-1.0); CALCIUM 8.9 mg/dL (8.5-10.1); CARBON DIOXIDE 26 mEq/L (21-32); CHOLESTEROL 199 mg/dL (<200); CREATINE KINASE 74 IU/L (26-192); CREATINE KINASE MB FRACTION < 1.0 ng/mL (0.5-3.6); CREATININE 0.7 mg/dL (0.6-1.3); GLUCOSE 95 mg/dL (70-105); HDL CHOLESTEROL 95 mg/dL (40-59); LDL CHOLESTEROL 112 mg/dL (5-100); PROTEIN TOTAL 7.3 g/dL (6.0-8.3); TRIGLYCERIDE 37 mg/dL (0-150); TROPONIN I HIGH SENSITIVITY 4 ng/L (<54); UREA NITROGEN BLOOD 16 mg/dL (7-21)
[2022-10-31] MEDS: FOLIC ACID 1MG TABLET PO SCH (08:40)
[2022-10-31] MEDS: MULTIVITAMINS,THER W-MINERALS TABLET PO SCH (08:40)
[2022-10-31] MEDS: PANTOPRAZOLE SODIUM 40 MG/VIAL IV SCH (08:43)
[2022-10-31] MEDS: LEVOTHYROXINE SODIUM 75MCG TABLET PO SCH (11:30)
[2022-10-31 12:00] VITALS: BP 94/60; PULSE 70; RESP 18; TEMP 97.7
[2022-10-31] MEDS: SODIUM CHLORIDE 0.9% 1,000 ML IV SCH (12:50)
[2022-10-31] MEDS ORDERED: FOLIC ACID 1 MG, THIAMINE HCL 100 MG, MVI, ADULT NO.1 10 ML in DEXTROSE 5% WATER 1,000 ML IV NR ×4 (13:30)
[2022-10-31 16:31] VITALS: BP 128/74; PULSE 77; RESP 20; TEMP 97.8
[2022-10-31 20:00] VITALS: BP_SYST 103; BP_SYST 105; BP_DIAS 68; BP_DIAS 73; PULSE 70; RESP 20; TEMP 97.9
[2022-10-31 22:39] LABS: INDEX HEMOLYSI 1 (1-3)
[2022-10-31 22:47] LABS: CREATINE KINASE 56 IU/L (26-192); CREATINE KINASE MB FRACTION < 1.0 ng/mL (0.5-3.6); TROPONIN I HIGH SENSITIVITY 4 ng/L (<54)
[2022-11-01] VITALS: BP 107/63; PULSE 73; RESP 18; TEMP 97.9
[2022-11-01] MEDS: HYDROCODONE/ACETAMINOPHEN 5/325MG TABLET PO PRN ×2 (01:53→06:41)
[2022-11-01 04:00] VITALS: BP 107/64; PULSE 59; RESP 18; TEMP 97.6
[2022-11-01 07:21] LABS: BASOPHILS % 0.8 % (0.0-2.0); EOSINOPHILS % 5.9 % (0.0-5.0); HEMATOCRIT. 31.2 % (36.0-48.0); MEAN CORPUSCULAR HEMOGLOBIN 25.7 pg (28.0-32.0); MEAN CORPUSCULAR HGB CONC 32.1 g/dL (31.0-37.0); MEAN PLATELET VOLUME 8.2 fl (7.4-10.4); MONOCYTES % 8.7 % (2.0-8.0); NEUTROPHILS % 62.6 % (40.0-76.0); PLATELET 172 x1000/uL (130-400); WHITE BLOOD COUNT 3.7 x1000/uL (4.5-11.0)
[2022-11-01 08:00] VITALS: BP 119/69; PULSE 59; RESP 18; TEMP 97.7
[2022-11-01 08:11] LABS: CHLORIDE 101 mEq/L (98-107); INDEX HEMOLYSI 1 (1-3); INDEX ICTERIC 1 (1-4); INDEX LIPEMIC 1 (1-3); POTASSIUM 4.2 mEq/L (3.5-5.1); SODIUM 136 mEq/L (136-145)
[2022-11-01 08:27] LABS: ALANINE AMINOTRANSFERASE 27 IU/L (13-61); ALBUMIN 3.4 g/dL (3.4-5.0); ASPARTATE AMINOTRANSFERASE 36 IU/L (15-37); BILIRUBIN TOTAL 1.3 mg/dL (0.1-1.0); CALCIUM 8.9 mg/dL (8.5-10.1); CARBON DIOXIDE 27 mEq/L (21-32); CREATININE 0.7 mg/dL (0.6-1.3); GLUCOSE 88 mg/dL (70-105); PROTEIN TOTAL 7.3 g/dL (6.0-8.3); UREA NITROGEN BLOOD 14 mg/dL (7-21)
[2022-11-01] MEDS: CARVEDILOL 3.125 MG TABLET PO SCH (09:19)
[2022-11-01] MEDS: THIAMINE HCL 100MG TABLET PO SCH (09:19)
[2022-11-01] MEDS: MULTIVITAMINS,THER W-MINERALS TABLET PO SCH (09:19)
[2022-11-01] MEDS: FOLIC ACID 1MG TABLET PO SCH (09:20)
[2022-11-01] MEDS: PANTOPRAZOLE SODIUM 40 MG/VIAL IV SCH (09:20)
[2022-11-01] MEDS: LEVOTHYROXINE SODIUM 75MCG TABLET PO SCH (09:21)
[2022-11-01 09:38] VITALS: BP 119/69; PULSE 59; TEMP 97.7; O2SAT 98
[2022-11-01 10:58] LABS: CLARITY URINE CLEAR (CLEAR); COLOR URINE YELLOW (YELLOW); GLUCOSE URINE NEGATIVE (NEGATIVE); KETONES URINE NEGATIVE (NEGATIVE); LEUKOCYTE ESTERASE URINE 3+ (NEGATIVE); NITRITE URINE NEGATIVE (NEGATIVE); OCCULT BLOOD URINE NEGATIVE (NEGATIVE); PH URINE 6.5 (4.5-8.0); PROTEIN URINE NEGATIVE (NEGATIVE); SPECIFIC GRAVITY URINE 1.012 (1.005-1.030)
[2022-11-01 11:37] LABS: RBC URINE NONE SEEN /hpf (0-2); SQUAMOUS EPITHELIAL CELL URINE 1+ /lpf (RARE/1+)
[2022-11-01 11:38] LABS: BACTERIA URINE 1+; YEAST URINE NONE SEEN
[2022-11-01 11:55] LABS: *AMPHETAMINES SCREEN URINE NEGATIVE (NEGATIVE); *BARBITURATES SCREEN URINE NEGATIVE (NEGATIVE); *BENZODIAZEPINES SCREEN URINE NEGATIVE (NEGATIVE); *COCAINE SCREEN URINE NEGATIVE (NEGATIVE); CANNABINOID URINE SCREEN NEGATIVE (NEGATIVE); ECSTASY MDMA SCREEN URINE NEGATIVE (NEGATIVE); METHADONE URINE SCREEN NEGATIVE (NEGATIVE); PHENCYCLIDINE URINE SCREEN NEGATIVE (NEGATIVE)
[2022-11-01 11:56] LABS: OPIATES URINE SCREEN PRESUMTIVE POSITIVE (NEGATIVE)
[2022-11-01 12:00] VITALS: BP_SYST 110; BP_SYST 115; BP_SYST 120; BP_DIAS 53; BP_DIAS 55; BP_DIAS 65; PULSE 68; RESP 18; TEMP 97.2
== END 2022-11-01 17:30 | disposition home or self-care (01) | DRG 48 ==
LOC: ER 17:15 → MICUSO 21:10 → 7WST 23:25
PROVIDERS: ADMIT Internal Medicine; ATTEND Internal Medicine
DX: G90.9 Disorder of the autonomic nervous system, unspecified (principal); K74.60 Unspecified cirrhosis of liver; E87.1 Hypo-osmolality and hyponatremia; S06.0XAA Concussion with loss of consciousness status unknown, initial encounter; D50.9 Iron deficiency anemia, unspecified; K80.20 Calculus of gallbladder without cholecystitis without obstruction; E03.9 Hypothyroidism, unspecified; F10.90 Alcohol use, unspecified, uncomplicated; S01.01XA Laceration without foreign body of scalp, initial encounter; M47.812 Spondylosis without myelopathy or radiculopathy, cervical region; I10 Essential (primary) hypertension; W19.XXXA Unspecified fall, initial encounter
CPT/HCPCS: 36415; 71045; 74177; 80053; 80061; 80305; 81003; 82105; 82140; 82550; 82553; 83605; 84145; 84439; 84443; 84484; 84703; 85025; 86803; 87340; 90715; 93005; 93306; 93880; 97165; 99285; C9113; J2270; J3411; J3490; J7030; J7070; Q9967